=== PATIENT | female | born 1995 | race Two or more races ===

== ENCOUNTER 2020-08-18 07:20 | Inpatient (IN) | payer BC, MEDICAID ==
[~2020-08-18] VITALS: Ht 154.9 cm; Wt 102.0 kg
[2020-08-18] MEDS ORDERED: NEWBORN KIT ONE (07:36)
[2020-08-18] MEDS ORDERED: LIDOCAINE 1%, 20ML ONE ×2 (07:37→23:31)
[2020-08-18] MEDS ORDERED: OXYTOCIN 30U/ 0.9% NaCL 500ML 500 ML ONE ×2 (07:37→23:24)
[2020-08-18] MEDS ORDERED: MISOPROSTOL 200 MCG TABLET ONE ×2 (07:37→23:31)
[2020-08-18] MEDS: LACTATED RINGERS 1,000 ML IV SCH (07:45)
[2020-08-18] MEDS ORDERED: FENTANYL PF 100 MCG/2ML IVPush PRN (08:00)
[2020-08-18] MEDS ORDERED: OXYTOCIN 30U/ 0.9% NaCL 500ML 500 ML IV ONE (08:00)
[2020-08-18] MEDS ORDERED: TERBUTALINE 1 MG/ML, 1ML SQ PRN (08:00)
[2020-08-18] MEDS ORDERED: MISOPROSTOL 25 MCG TABLET VG PRN (08:00)
[2020-08-18] MEDS ORDERED: ONDANSETRON 2MG/ML, 2ML IVPush PRN (08:00)
[2020-08-18] MEDS ORDERED: METOCLOPRAMIDE 5 MG/ML, 2ML IVPush PRN (08:00)
[2020-08-18] MEDS ORDERED: OXYTOCIN 30U/ 0.9% NaCL 500ML 500 ML IV PRN ×2 (08:00)
[2020-08-18] MEDS ORDERED: CALCIUM CARBONATE 500 MG TAB.CHEW PO PRN (08:00)
[2020-08-18] MEDS ORDERED: TERBUTALINE 1 MG/ML, 1ML IVPush PRN (08:00)
[2020-08-18] MEDS ORDERED: SODIUM CHLORIDE FLUSH 10ML SYR IVF PRN (08:00)
[2020-08-18] MEDS ORDERED: SODIUM CITRATE/CITRIC ACID 30 ML UDC PO PRN (08:00)
[2020-08-18] MEDS ORDERED: ALUMINUM/MAG/SIMETHICONE 30 ML UDC PO PRN (08:00)
[2020-08-18 08:05] LABS: BASOPHILS % (AUTO) 1 % (0-1); EOSINOPHILS % (AUTO) 1 % (1-7); LYMPHOCYTES % (AUTO) 19 % (22-44); MEAN CORPUSCULAR HEMOGLOBIN 31.4 pg (27.0-34.8); MEAN CORPUSCULAR HGB CONC 33.7 g/dL (32.4-35.8); MEAN PLATELET VOLUME 9.1 fL (7.4-10.4); MONOCYTES % (AUTO) 6 % (2-9); NEUTROPHILS % (AUTO) 74 % (42-75); PLATELET COUNT 289 x10^3/uL (130-400); RED BLOOD COUNT 4.09 x10^6/uL (3.82-5.3); RED CELL DISTRIBUTION WIDTH 13.8 % (9.6-15.2)
[2020-08-18 08:07] LABS: MD NO
[2020-08-18] MEDS ORDERED: MISOPROSTOL 25 MCG TABLET ONE (08:26)
[2020-08-18] MEDS ORDERED: PLEASE ENTER HEIGHT AND WEIGHT MC SCH (09:00)
[2020-08-18] MEDS: D5%-LACTATED RINGERS 1,000 ML IV SCH (17:38)
[2020-08-18 19:45] VITALS: BP 118/71
[2020-08-19 03:33] LABS: BASOPHILS % (AUTO) 1 % (0-1); EOSINOPHILS % (AUTO) 1 % (1-7); LYMPHOCYTES % (AUTO) 16 % (22-44); MEAN CORPUSCULAR HEMOGLOBIN 31.5 pg (27.0-34.8); MEAN CORPUSCULAR HGB CONC 33.8 g/dL (32.4-35.8); MEAN PLATELET VOLUME 9.3 fL (7.4-10.4); MONOCYTES % (AUTO) 6 % (2-9); NEUTROPHILS % (AUTO) 76 % (42-75); PLATELET COUNT 281 x10^3/uL (130-400); RED BLOOD COUNT 4.25 x10^6/uL (3.82-5.3); RED CELL DISTRIBUTION WIDTH 14.2 % (9.6-15.2)
[2020-08-19 03:39] LABS: MD NO
[2020-08-19 03:41] LABS: ALANINE AMINOTRANSFERASE 16 U/L (12-78); ALBUMIN 2.5 g/dL (3.4-5.0); ANION GAP 6 mmol/L (5-15); CALCIUM 9.2 mg/dL (8.5-10.1); CHLORIDE 109 mmol/L (98-107); CREATININE 0.61 mg/dL (0.55-1.02)
[2020-08-19 03:43] LABS: BILIRUBIN, DIRECT < 0.1 mg/dL (0.1-0.2)
[2020-08-19 03:45] LABS: ALKALINE PHOSPHATASE 151 U/L (45-117); BILIRUBIN,TOTAL 0.3 mg/dL (0.2-1.0); TOTAL PROTEIN 6.9 g/dL (6.4-8.2)
[2020-08-19 04:04] LABS: CREATININE,URINE RANDOM 32.2 mg/dL
[2020-08-19] MEDS ORDERED: FENTANYL/BUPIV./NS/PF 250 ML EPIDCONT ONE (05:48)
[2020-08-19] MEDS ORDERED: BUPIVACAINE 0.25% ONE (05:54)
[2020-08-19] MEDS ORDERED: NALOXONE 0.4 MG/ML, 1ML IVPush PRN (06:30)
[2020-08-19] MEDS ORDERED: EPHEDRINE 50 MG/ML, 1ML IVPush PRN (06:30)
[2020-08-19] MEDS ORDERED: LACTATED RINGERS 1,000 ML IV SCH ×2 (06:30→19:00)
[2020-08-19] MEDS ORDERED: ONDANSETRON 2MG/ML, 2ML IVPush PRN (06:30)
[2020-08-19] MEDS ORDERED: FENTANYL/BUPIV./NS/PF 250 ML EPIDCONT SCH (06:30)
[2020-08-19] MEDS ORDERED: DIPHENHYDRAMINE 50 MG/ML, 1ML IVPush PRN (06:30)
[2020-08-19] MEDS ORDERED: LACTATED RINGERS 1,000 ML IVBOLUS PRN (06:30)
[2020-08-19] MEDS ORDERED: METOCLOPRAMIDE 5 MG/ML, 2ML ONE (07:03)
[2020-08-19] MEDS ORDERED: SODIUM CITRATE/CITRIC ACID 15 ML UDC ONE (07:04)
[2020-08-19] MEDS: AMPICILLIN 2 GM in SODIUM CHLORIDE 0.9% 100 ML IV SCH ×3 (10:22→21:45)
[2020-08-19] MEDS ORDERED: GENTAMICIN PER PHARMACY MC PRN ×2 (10:30→20:30)
[2020-08-19] MEDS ORDERED: PHARMACOKINETIC MONITORING MC PRN (11:30)
[2020-08-19] MEDS ORDERED: PHARMACOKINETIC CONSULTATION MC ONE (11:30)
[2020-08-19] MEDS: GENTAMICIN 140 MG in SODIUM CHLORIDE 0.9% 50 ML IV SCH ×2 (11:40→21:00)
[2020-08-19] MEDS: D5%-LACTATED RINGERS 1,000 ML IV SCH (15:02)
[2020-08-19] MEDS: LACTATED RINGERS 1,000 ML IV SCH ×2 (16:00→19:26)
[2020-08-19] MEDS ORDERED: AZITHROMYCIN 500 MG in SODIUM CHLORIDE 0.9% 250 ML IV ONE (17:00)
[2020-08-19] MEDS ORDERED: LIDOCAINE/MPF 2%-EPI 1:200K, 20 ML ONE (17:23)
[2020-08-19] MEDS ORDERED: OXYTOCIN 10 UNITS/ML, 1ML ONE (17:28)
[2020-08-19] MEDS ORDERED: ONDANSETRON 2MG/ML, 2ML ONE (17:28)
[2020-08-19] MEDS ORDERED: HYDROmorphone 2 MG/ML, 1ML ONE (17:28)
[2020-08-19] MEDS ORDERED: CEFAZOLIN 1,000 MG ONE (17:28)
[2020-08-19] MEDS ORDERED: FENTANYL PF 100 MCG/2ML ONE (17:28)
[2020-08-19] MEDS ORDERED: MEPERIDINE/PF 50 MG/ML ONE (18:15)
[2020-08-19] MEDS ORDERED: KETOROLAC 30 MG/1 ML ONE (18:17)
[2020-08-19] MEDS ORDERED: MISOPROSTOL 200 MCG TABLET PR PRN (19:00)
[2020-08-19] MEDS ORDERED: ONDANSETRON 2MG/ML, 2ML IV PRN (19:00)
[2020-08-19] MEDS ORDERED: morphine SULFATE 10 MG/ML, 1ML IVPush PRN ×2 (19:00)
[2020-08-19] MEDS ORDERED: CARBOPROST TROMETHAMINE 250 MCG/ML, 1ML IM PRN (19:00)
[2020-08-19] MEDS ORDERED: SIMETHICONE 80 MG CHEW TAB PO PRN (19:00)
[2020-08-19] MEDS: OXYTOCIN 30U/ 0.9% NaCL 500ML 500 ML IV SCH (19:00)
[2020-08-19] MEDS ORDERED: LABETALOL 5MG/ML, 20ML ONE (19:05)
[2020-08-19] MEDS ORDERED: LABETALOL 5MG/ML, 20ML IVPush ONE (19:30)
[2020-08-19 20:15] VITALS: BP 141/81
[2020-08-20] VITALS (7 sets, daily range): BP systolic 111–129; BP diastolic 69–81
[2020-08-20] MEDS: AMPICILLIN 2 GM in SODIUM CHLORIDE 0.9% 100 ML IV SCH ×6 (01:48→21:45)
[2020-08-20 03:48] LABS: MICROSCOPIC INDICATED
[2020-08-20] MEDS: OXYTOCIN 30U/ 0.9% NaCL 500ML 500 ML IV SCH ×2 (05:00→15:00)
[2020-08-20] MEDS: LACTATED RINGERS 1,000 ML IV SCH ×2 (05:00→15:00)
[2020-08-20] MEDS: GENTAMICIN 140 MG in SODIUM CHLORIDE 0.9% 50 ML IV SCH ×3 (05:07→19:30)
[2020-08-20] MEDS: OXYcodone/APAP 5/325MG TABLET PO PRN ×5 (05:31→22:06)
[2020-08-20 05:36] LABS: BASOPHILS % (AUTO) 0 % (0-1); EOSINOPHILS % (AUTO) 0 % (1-7); LYMPHOCYTES % (AUTO) 10 % (22-44); MEAN CORPUSCULAR HEMOGLOBIN 31.3 pg (27.0-34.8); MEAN CORPUSCULAR HGB CONC 33.7 g/dL (32.4-35.8); MEAN PLATELET VOLUME 9.1 fL (7.4-10.4); MONOCYTES % (AUTO) 5 % (2-9); NEUTROPHILS % (AUTO) 84 % (42-75); PLATELET COUNT 238 x10^3/uL (130-400); RED BLOOD COUNT 3.66 x10^6/uL (3.82-5.3); RED CELL DISTRIBUTION WIDTH 14.3 % (9.6-15.2)
[2020-08-20 05:42] LABS: MD NO
[2020-08-20] MEDS: DOCUSATE 100 MG CAPSULE PO PRN ×2 (09:50→22:05)
[2020-08-20] MEDS: PRENATAL VIT/IRON/FA 1 EACH TABLET PO SCH (09:51)
[2020-08-20] MEDS: IBUPROFEN 800 MG TABLET PO PRN ×2 (13:55→22:05)
[2020-08-21] MEDS: LACTATED RINGERS 1,000 ML IV SCH ×3 (01:00→21:00)
[2020-08-21] MEDS: OXYTOCIN 30U/ 0.9% NaCL 500ML 500 ML IV SCH ×3 (01:00→21:00)
[2020-08-21] MEDS: IBUPROFEN 800 MG TABLET PO PRN ×2 (08:47→19:17)
[2020-08-21] MEDS: DOCUSATE 100 MG CAPSULE PO PRN ×2 (08:47→19:17)
[2020-08-21] MEDS: OXYcodone/APAP 5/325MG TABLET PO PRN ×2 (08:47→19:17)
[2020-08-21] MEDS: PRENATAL VIT/IRON/FA 1 EACH TABLET PO SCH (08:47)
[2020-08-21 20:00] VITALS: BP 137/88
[2020-08-21] MEDS ORDERED: MEASLES,MUMPS&RUBELLA VACC/PF 0.5 ML SQ-VACC ONE (23:30)
[2020-08-22] MEDS ORDERED: DIPH,PERTUSS(ACELL),TET VAC/PF NC IM-VACC ONE ×2 (01:56→02:30)
[2020-08-22] MEDS: OXYcodone/APAP 5/325MG TABLET PO PRN ×2 (02:27→08:21)
[2020-08-22] MEDS ORDERED: IBUP-1223 PO (07:36)
[2020-08-22] MEDS ORDERED: DOCU-131 PO (07:36)
[2020-08-22] MEDS ORDERED: OXYC1TAB14 PO ×2 (07:36→07:40)
[2020-08-22 08:10] VITALS: BP 125/85
[2020-08-22] MEDS: IBUPROFEN 800 MG TABLET PO PRN (08:20)
[2020-08-22] MEDS: PRENATAL VIT/IRON/FA 1 EACH TABLET PO SCH (08:21)
[2020-08-22] MEDS: DOCUSATE 100 MG CAPSULE PO PRN (08:21)
== END 2020-08-22 14:29 | disposition home or self-care (01) | DRG 786 ==
LOC: LDIP 07:20 → 2NW 08-19 20:00
PROVIDERS: ADMIT Obstetrics & Gynecology; ATTEND Obstetrics & Gynecology
PROC: 10D00Z1 Extraction of Products of Conception, Low, Open Approach (ICD-10-PCS; principal; 2020-08-19)
DX: O62.2 Other uterine inertia (principal); O41.1230 Chorioamnionitis, third trimester, not applicable or unspecified; Z3A.39 39 weeks gestation of pregnancy; Z37.0 Single live birth; Z20.822 Contact with and (suspected) exposure to COVID-19
CPT/HCPCS: 36415; J7121; 80053; 81001; 82248; 82570; 84156; 84550; 85025; 86592; 86850; 86900; 87635; 90715; G0378; J0290; J0456; J0690; J1170; J1885; J2175; J2405; J3010; J1580; J2590; J2765; J7050; J7120